=== PATIENT | male | born 1995 | race Asian ===

== ENCOUNTER 2021-10-09 12:11 | Outpatient (REF) | payer SELFPAY ==
[2021-10-09 15:39] LABS: Binax Internal Control QC Valid; Binax Lot number: 17705; Binax Now Covid-19 Ag Negative (Negative)
== END 2021-10-09 12:12 | disposition home or self-care (01) ==
LOC: HO.LAB 12:11
PROVIDERS: Visit Provider Internal Medicine
DX: Z20.822 Contact with and (suspected) exposure to COVID-19 (principal)
CPT/HCPCS: C9803